=== PATIENT | male | born 1950 | race African-American/Black ===

== ENCOUNTER 2017-06-03 12:02 | Emergency (ER) | payer OTHER, MEDICARE ==
[~2017-06-03] VITALS: Ht 167.6 cm; Wt 77.1 kg
[~2017-06-03 12:02] MED LIST: ASPIRIN81 MG ORAL; COREG12.5 MG ORAL; NKM
--- NOTE | 2017-06-03 12:15 | Emergency Room Report ---
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 Denies any change in medication He does remembered feeling lightheaded and essentially near syncopal Allergies: Coded Allergies: No Known Allergies (Unverified , 12/03/15) Patient History Past Medical History: see triage record Pertinent Family History: none Reviewed Nursing Documentation: PMH: Agreed, PSxH: Agreed Nursing Documentation-PMH Past Medical History: No History, Except For Hx Cardiac Problems: Yes - STENTS Hx Pacemaker: Yes - LEFT Hx Diabetes: Yes Hx Cancer: No Hx Gastrointestinal Problems: No Hx Neurological Problems: No Hx Cerebrovascular Accident: Yes Review of Systems All Other Systems: negative except mentioned in HPI Physical Exam Vital Signs Date Time Temp Pulse Resp B/P (MAP) Pulse Ox O2 Delivery O2 Flow Rate FiO2 06/03/17 11:55 98.4 67 20 136/72 98 Room Air Sp02 EP Interpretation: reviewed, normal General Appearance: no apparent distress Head: normocephalic, atraumatic Eyes: right eye other - Some intermittent drooping of the right upper eyelid however is able to open both eyes when prompted, , bilateral eye PERRL, bilateral eye EOMI ENT: hearing grossly normal, normal pharynx, TMs + canals normal, uvula midline Neck: full range of motion, supple, no meningismus, no bony tend Respiratory: lungs clear, normal breath sounds, no rhonchi, no respiratory distress, no retraction, no accessory muscle use Cardiovascular #1: normal peripheral pulses, regular rate, rhythm, no edema, no gallop, no JVD, no murmur Gastrointestinal: normal bowel sounds, non tender, soft, no mass, no organomegaly, non-distended, no guarding, no hernia, no pulsatile mass, no rebound Genitourinary: no CVA tenderness Musculoskeletal: normal inspection Neurologic: oriented x3, responsive, bookkeeping assistant III-XII nml as tested, motor strength/ tone normal, sensory intact Psychiatric: mood/affect normal Skin: normal color, no rash, warm/dry, palpation normal Lymphatic: normal inspection, no adenopathy Medical Decision Making Diagnostic Impression: Primary Impression: Syncope Additional Impression: Near syncope ER Course Patient is a fairly complex patient with multiple differential to consideration including but not limited to cardiac cardiopulmonary and vascular emergencies Patient's blood pressure has improved in the ER Initial blood work are appropriate patient's chemistry was hemolyzed and the potassium was elevated however the kidney function was normal and this is likely due to to hemolysis patient remains hemodynamically stable at this time speaking to [facility] Provide information regarding the patient's EF being approximately 25% and the patient otherwise transfer for continued inpatient care repeat K normal at 4.2 Labs Test 06/03/17 12:33 06/03/17 13:38 White Blood Count 4.6 K/UL (4.8-10.8) Red Blood Count 4.10 M/UL (4.70-6.10) Hemoglobin 12.3 G/DL (14.2-18.0) Hematocrit 36.5 % (42.0-52.0) Mean Corpuscular Volume 89 FL (80-99) Mean Corpuscular Hemoglobin 30.1 PG (27.0-31.0) Mean Corpuscular Hemoglobin Concent 33.8 G/DL (32.0-36.0) Red Cell Distribution Width 11.8 % (11.6-14.8) Platelet Count 185 K/UL (150-450) Mean Platelet Volume 7.5 FL (6.5-10.1) Neutrophils (%) (Auto) 67.0 % (45.0-75.0) Lymphocytes (%) (Auto) 13.0 % (20.0-45.0) Monocytes (%) (Auto) 14.7 % (1.0-10.0) Eosinophils (%) (Auto) 2.8 % (0.0-3.0) Basophils (%) (Auto) 2.5 % (0.0-2.0) Sodium Level 137 MMOL/L (136-145) Potassium Level 6.0 MMOL/L (3.5-5.1) Chloride Level 102 MMOL/L (98-107) Carbon Dioxide Level 29 MMOL/L (21-32) Anion Gap 7 mmol/L (5-15) Blood Urea Nitrogen 30 mg/dL (7-18) Creatinine 1.0 MG/DL (0.55-1.30) Estimat Glomerular Filtration Rate > 60 mL/min (>60) Glucose Level 126 MG/DL (74-106) Lactic Acid Level 1.60 mmol/L (0.66-2.22) Calcium Level 8.8 MG/DL (8.5-10.1) Total Bilirubin 0.6 MG/DL (0.2-1.0) Aspartate Amino Transf (AST/SGOT) 45 U/L (15-37) Alanine Aminotransferase (ALT/SGPT) 36 U/L (12-78) Alkaline Phosphatase 87 U/L (46-116) Total Creatine Kinase 98 U/L (26-308) Creatine Kinase MB < 0.5 NG/ML (0.0-3.6) Creatine Kinase MB Relative Index 0.5 Troponin I 0.000 ng/mL (0.000-0.056) Total Protein 8.1 G/DL (6.4-8.2) Albumin 3.4 G/DL (3.4-5.0) Globulin 4.7 g/dL Albumin/Globulin Ratio 0.7 (1.0-2.7) Lipase 92 U/L (73-393) EKG Diagnostic Results Rate: normal Rhythm: NSR ST Segments: other - Nonspecific ST and T-wave changes, including flipped T waves 2,3 and aVF including lateral leads, Rhythm Strip Diag. Results EP Interpretation: yes Rate: 66 Rhythm: NSR, no PVC's, no ectopy Chest X-Ray Diagnostic Results Chest X-Ray Diagnostic Results : Chest X-Ray Ordered: Yes # of Views/Limited/Complete: 1 View Indication: Chest Pain EP Interpretation: Yes Interpretation: no consolidation, no effusion, no pneumothorax, no acute cardiopulmonary disease Impression: No acute disease Electronically Signed by: Briana Rodriguez DO Last Vital Signs Date Time Temp Pulse Resp B/P (MAP) Pulse Ox O2 Delivery O2 Flow Rate FiO2 06/03/17 11:55 98.4 67 20 136/72 98 Room Air Status: improved Disposition: XFER T-[facility] Condition: Improved BRIANA RODRIGUEZ D.O. Jun 03, 2017 12:15
[2017-06-03 12:51] LABS: BASOPHILS % (AUTO) 2.5 % (0.0-2.0); EOSINOPHILS % (AUTO) 2.8 % (0.0-3.0); MEAN CORPUSCULAR HEMOGLOBIN 30.1 PG (27.0-31.0); MEAN CORPUSCULAR HGB CONC 33.8 G/DL (32.0-36.0); MEAN CORPUSCULAR VOLUME 89 FL (80-99); MEAN PLATELET VOLUME 7.5 FL (6.5-10.1); MONOCYTES % (AUTO) 14.7 % (1.0-10.0); PLATELET COUNT 185 K/UL (150-450); RED CELL DISTRIBUTION WIDTH 11.8 % (11.6-14.8); WHITE BLOOD COUNT 4.6 K/UL (4.8-10.8)
[2017-06-03 12:55] VITALS: BP 136/67
[2017-06-03 13:45] LABS: ALANINE AMINOTRANSFERASE 36 U/L (12-78); ALBUMIN/GLOBULIN RATIO 0.7 (1.0-2.7); ANION GAP 7 mmol/L (5-15); ASPARTATE AMINO TRANSFERASE 45 U/L (15-37); CALCIUM 8.8 MG/DL (8.5-10.1); CARBON DIOXIDE 29 MMOL/L (21-32); CHLORIDE 102 MMOL/L (98-107); CKMB < 0.5 NG/ML (0.0-3.6); GLOMERULAR FILTRATION RATE > 60 mL/min (>60); LIPASE 92 U/L (73-393); SODIUM 137 MMOL/L (136-145); TOTAL PROTEIN 8.1 G/DL (6.4-8.2)
[2017-06-03 14:16] VITALS: BP 155/72
[2017-06-03 14:23] LABS: APPEARANCE,URINE CLEAR; KETONES,URINE NEGATIVE (NEGATIVE); LEUKOCYTE ESTERASE ,URINE NEGATIVE (NEGATIVE); NITRITE,URINE NEGATIVE (NEGATIVE); PH,URINE 8 (4.5-8.0); PROTEIN,URINE NEGATIVE (NEGATIVE); UROBILINOGEN,URINE NORMAL MG/DL (0.0-1.0)
[2017-06-03 15:30] VITALS: BP 151/73
[2017-06-03 15:50] VITALS: BP 156/66
--- NOTE | 2017-06-04 10:56 | Diagnostic Imaging Report ---
Indication: Shortness of breath Technique: XRAY CHEST 1 V Comparison: 12/03/15 Findings: Cardiomediastinal silhouette is stable. Sternotomy wires, mediastinal clips and a left chest pacemaker are noted. There is no consolidation or pleural effusion. Osseous structures are stable. Impression: No acute cardiopulmonary disease. Stable chronic findings as above.
--- NOTE | 2017-06-04 15:29 | Cardiology Report ---
APPROVED REPORT EKG Measurement Heart [id number] Normal sinus rhythm T wave abnormality, consider inferolateral ischemia Abnormal ECG
== END 2017-06-03 15:50 | disposition short-term general hospital (02) ==
LOC: EDBD 12:02 → EMR 12:28
DX: R55 Syncope and collapse (principal); Z86.73 Personal history of transient ischemic attack (TIA), and cerebral infarction without residual deficits; Z95.5 Presence of coronary angioplasty implant and graft; Z95.0 Presence of cardiac pacemaker; E11.9 Type 2 diabetes mellitus without complications
CPT/HCPCS: 36415; 71010; 80053; 81003; 82550; 82553; 83605; 83690; 84132; 84484; 85025; 87040; 93005; 96361; 96374; 99285